=== PATIENT | female | born 1965 | race Caucasian/White ===

== ENCOUNTER → 2017-05-08 | Outpatient (CLI) | payer OTHER ==
[~2017-05-08] MED LIST: CENTRUM SILVER1 EAC4 PO; CLARITIN10 M2 PO; CRANBERRY405 MG PO; FIBER625 MG PO; IBUPROFEN 800800 M1 PO; IRON325 PO; PROBIOTIC1 EAC1 PO; TUMS PO
== END ==
LOC: M.MRI 07:04
DX: R20.0 Anesthesia of skin (principal); R20.2 Paresthesia of skin

== ENCOUNTER → 2017-07-25 | Outpatient (CLI) | payer OTHER ==
[2017-07-27 11:11] LABS: ANTI-SSA <0.2 AI (0.0-0.9)
[2017-07-27 13:11] LABS: M-SPIKE Not Observed g/dL (Not Observed)
== END ==
LOC: M.LAB 10:53
PROVIDERS: Psychiatry & Neurology Neuromuscular Medicine
DX: R20.2 Paresthesia of skin (principal)

== ENCOUNTER → 2018-05-10 | Outpatient (CLI) | payer OTHER ==
[2018-05-10 10:03] LABS: ABSOLUTE LYMPHOCYTES 2.1 thou/uL (0.8-5.3); ABSOLUTE MONOCYTES 0.4 thou/uL (0.0-1.2); ABSOLUTE NEUTROPHILS 3.1 thou/uL (1.6-8.1); BASOPHILS 0.4 %; EOSINOPHILS 0.8 %; HEMATOCRIT 40.7 % (37.0-47.0); HEMOGLOBIN 13.7 gm/dL (12.0-15.0); MCH 31.8 pg (26.0-34.0); MCHC 33.5 g/dL (28.0-37.0); MCV 94.9 fL (80.0-100.0); MONOCYTES 6.7 %; MPV 8.6 fl. (7.2-11.1); NUCLEATED RBCS 0 /100WBC; PLATELET COUNT* 267 thou/uL (150-400); POLYS 55.1 %; RBC 4.29 mil/uL (4.20-5.00); RDW-CV 12.6 % (10.5-14.5); WBC 5.6 thou/uL (4.0-11.0)
[2018-05-10 10:16] LABS: CALCIUM 9.1 mg/dL (8.5-10.1); CREATININE 0.8 mg/dL (0.6-1.3); POTASSIUM 3.9 mmol/L (3.5-5.1)
== END ==
LOC: M.LAB 09:41
PROVIDERS: Nurse Practitioner
DX: N95.0 Postmenopausal bleeding (principal); E66.3 Overweight; R53.83 Other fatigue

== ENCOUNTER → 2018-05-22 | Outpatient (CLI) | payer OTHER | LOC: M.ULTRA 05-15 15:45 | DX: N88.8 Other specified noninflammatory disorders of cervix uteri (principal); R10.9 Unspecified abdominal pain; N95.0 Postmenopausal bleeding ==

== ENCOUNTER → 2018-07-22 | Outpatient (CLI) | payer OTHER ==
[2018-07-22 12:21] LABS: ABSOLUTE LYMPHOCYTES 2.3 thou/uL (0.8-5.3); ABSOLUTE MONOCYTES 0.3 thou/uL (0.0-1.2); ABSOLUTE NEUTROPHILS 2.5 thou/uL (1.6-8.1); BASOPHILS 0.4 %; EOSINOPHILS 0.7 %; HEMOGLOBIN 13.6 gm/dL (12.0-15.0); LYMPHOCYTES 44.7 %; MCH 31.7 pg (26.0-34.0); MCHC 33.9 g/dL (28.0-37.0); MCV 93.5 fL (80.0-100.0); MONOCYTES 6.5 %; NUCLEATED RBCS 0 /100WBC; PLATELET COUNT* 258 thou/uL (150-400); POLYS 47.7 %; RBC 4.27 mil/uL (4.20-5.00); RDW-CV 13.2 % (10.5-14.5); WBC 5.2 thou/uL (4.0-11.0)
[2018-07-22 12:36] LABS: ALBUMIN 3.8 g/dL (3.4-5.0); CALCIUM 8.8 mg/dL (8.5-10.1); CREATININE 0.7 mg/dL (0.6-1.3); POTASSIUM 3.5 mmol/L (3.5-5.1); TOTAL BILIRUBIN 0.3 mg/dL (<0.1-1.0); TOTAL PROTEIN 7.3 g/dL (6.4-8.2)
== END ==
LOC: M.LAB 12:04
PROVIDERS: Internal Medicine
DX: R19.7 Diarrhea, unspecified (principal)